=== PATIENT | female | born 1985 | race Caucasian/White ===

== ENCOUNTER 2016-06-12 08:24 | Inpatient (IN) | payer OTHER ==
[~2016-06-12] VITALS: Ht 167.6 cm; Wt 75.2 kg
[2016-06-12] VITALS (15 sets, daily range): BP systolic 99–136; BP diastolic 51–63
[2016-06-12 10:28] LABS: EOSINOPHIL (%) 1.4 % (0-5); EOSINOPHIL COUNT 0.2 K/uL (0-0.3); HEMATOCRIT 36.2 % (36.0-46.0); IMMATURE GRANULOCYTE (%) 0.5 % (0.0-0.7); IMMATURE GRANULOCYTE COUNT 0.1 K/uL; LYMPHOCYTE COUNT 2.2 K/uL (1.0-2.8); MCH 31.9 PG (29.0-34.0); MCHC 33.1 G/DL (30.0-36.0); MCV 96.3 FL (83-99); MEAN PLAT.VOLUME 11.7 uM^3 (9.5-12.4); MONOCYTE (%) 5.6 % (3-12); MONOCYTE COUNT 0.8 K/uL (0-0.8); NEUTROPHIL (%) 76.9 % (45-76); NEUTROPHIL COUNT 10.7 K/uL (1.8-6.4); PLATELET COUNT 276 K/uL (156-360); RBC DIS.WIDTH-CV 13.2 % (11.8-14.6); RBC DIS.WIDTH-SD 45.7 % (39-53); RED BLOOD COUNT 3.76 M/uL (3.80-5.20); WHITE BLOOD COUNT 13.9 K/uL (4.1-10.2)
[2016-06-12] MEDS ORDERED: MOTRIN800 MG PO (16:03)
[2016-06-13 07:28] VITALS: BP 123/77
[2016-06-13 15:06] VITALS: BP 115/57
[2016-06-13 23:52] VITALS: BP 117/56
[2016-06-14 06:45] VITALS: BP 104/51
== END 2016-06-14 12:39 | disposition home or self-care (01) | DRG 775 ==
LOC: LDRP-OP 08:24 → 2WEST 08:25 → LDRP-OP 07-30 11:50
PROVIDERS: Midwife
PROC: 10907ZC Drainage of Amniotic Fluid, Therapeutic from Products of Conception, Via Natural or Artificial Opening (ICD-10-PCS; principal; 2016-06-12)
PROC: 3E0R3CZ (ICD-10-PCS; principal; 2016-06-12)
PROC: 10E0XZZ Delivery of Products of Conception, External Approach (ICD-10-PCS; principal; 2016-06-12)
PROC: 3E0S3NZ Introduction of Analgesics, Hypnotics, Sedatives into Epidural Space, Percutaneous Approach (ICD-10-PCS; 2016-06-12)
DX: O99.334 Smoking (tobacco) complicating childbirth (principal); Z3A.37 37 weeks gestation of pregnancy; Z37.0 Single live birth; F17.200 Nicotine dependence, unspecified, uncomplicated
CPT/HCPCS: 85025; C1755; J3010; J7120

== ENCOUNTER 2017-12-09 16:45 | Emergency (ER) | payer BC ==
[~2017-12-09] VITALS: Ht 165.1 cm; Wt 59.0 kg
[~2017-12-09 16:45] MED LIST: MOTRIN800 MG PO
[2017-12-09] MEDS ORDERED: SERTRALINE HCL100 MG PO (16:52)
[2017-12-09] MEDS ORDERED: CIPRO500 MG PO (18:40)
[2017-12-09 18:53] VITALS: BP 130/77
== END 2017-12-09 18:53 | disposition home or self-care (01) ==
LOC: EME 16:45
PROC: 3E0234Z Introduction of Serum, Toxoid and Vaccine into Muscle, Percutaneous Approach (ICD-10-PCS; principal; 2017-12-09)
DX: S91.342A Puncture wound with foreign body, left foot, initial encounter (principal); W45.0XXA Nail entering through skin, initial encounter; Y92.828 Other wilderness area as the place of occurrence of the external cause; Z23 Encounter for immunization; F17.200 Nicotine dependence, unspecified, uncomplicated
CPT/HCPCS: 73630